=== PATIENT | female | born 1950 | race Caucasian/White ===

== ENCOUNTER 2016-07-06 10:15 | Day surgery (SDC) | payer OTHER ==
[2016-06-07 14:43] VITALS: BMI 37.3
[2016-07-06] VITALS (15 sets, daily range): BP systolic 85–147; BP diastolic 31–69; PULSE 62–97; RESP 14–25; Ht 160 cm; Wt 95.4 kg
[~2016-07-06] VITALS: Ht 160 cm; Wt 95.4 kg
[~2016-07-06 10:15] MED LIST: CEFAZOLIN 2 GM/50 ML (PMX) 50 ML IVPB ONE; CEFAZOLIN 2 GM/50 ML (PMX) 50 ML IVPB SCH; D5-NS + KCL 20 MEQ 1,000 ML IV ONE; D5-NS + KCL 20 MEQ 1,000 ML IV SCH; OMEP20CA16 PO; VITAMINS DAILY; ZOC10 PO; metroNIDAZOLE 500 MG/NS (PMX) 100 ML IVPB ONE; metroNIDAZOLE 500 MG/NS (PMX) 100 ML IVPB SCH
--- NOTE | 2016-07-06 13:20 | HPN ---
Date/Time of Note Date/Time of Note DATE: 07/06/16 TIME: 13:20 Interval H&P Admission Note Pt. seen H&P reviewed: No system changes GERMAN WHEELER MD Jul 06, 2016 13:20
[2016-07-06] MEDS ORDERED: CEFAZOLIN 1 GM INJ ONE (13:58)
[2016-07-06] MEDS ORDERED: PROPOFOL 20 ML ONE (13:58)
[2016-07-06] MEDS ORDERED: FENTAnyl 50 MCG/ML VIAL ONE (13:58)
[2016-07-06] MEDS ORDERED: MIDAZOLAM 1 MG/ML 2 ML INJ ONE (13:58)
[2016-07-06] MEDS ORDERED: PHENYLephrine (100 MCG/ML) 5ML SYG ONE (14:16)
[2016-07-06] MEDS ORDERED: morphine (1 MG/ML) 10ML SYRINGE IV PRN ×3 (14:30)
[2016-07-06] MEDS ORDERED: hydrALAzine 20 MG INJ IV PRN (14:30)
[2016-07-06] MEDS ORDERED: MEPERIDINE 25 MG INJ IV PRN (14:30)
[2016-07-06] MEDS ORDERED: HYDROmorphONE (0.2 MG/ML) 10ML SYG IV PRN ×3 (14:30)
[2016-07-06] MEDS ORDERED: LABETALOL HCL 20MG INJ IV PRN (14:30)
[2016-07-06] MEDS ORDERED: EPHEDrine SULFATE 50 MG/5 ML SYG IV PRN (14:30)
[2016-07-06] MEDS ORDERED: ONDANSETRON 4 MG INJ IV PRN ×2 (14:30→15:30)
[2016-07-06] MEDS ORDERED: METOCLOPRAMIDE 10 MG INJ IV PRN (14:30)
[2016-07-06] MEDS ORDERED: DIPHENHYDRAMINE 50 MG INJ IV PRN (14:30)
[2016-07-06] MEDS ORDERED: KETOROLAC 30 MG INJ ONE (14:32)
[2016-07-06] MEDS ORDERED: DEXAMETHASONE 4 MG/ML 1 ML INJ ONE (14:32)
[2016-07-06] MEDS ORDERED: ONDANSETRON 4 MG INJ ONE (14:32)
[2016-07-06] MEDS ORDERED: METOCLOPRAMIDE 10 MG INJ ONE (14:32)
[2016-07-06] MEDS ORDERED: LACTATED RINGER'S 1,000 ML IV SCH (15:03)
[2016-07-06] MEDS ORDERED: KETOROLAC 30 MG INJ IV PRN (15:30)
--- NOTE | 2016-07-07 20:50 | OPR ---
Date/Time of Note Date/Time of Note DATE: 07/07/16 TIME: 20:49 Operative Report Free Text/Dictation OPERATIVE REPORT [facility] Name: [facility] Date: 07/06/16 Preoperative Diagnosis: VAIN -III Postoperative Diagnosis: Same Procedures: Laser vaporization Surgeon: Dr. Perez Weatherization Technician: Dr. 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 Findings and Procedure: After being prepped and draped in the usual manner ascetic acid was placed and the vagina observed under magnification. The areas of any white epithelium, punctuation and or mosaciasm as noted on the apex were lasered to an appropriate depth at 10 guevara continuous power. The patient tolerated the procedure well and left the OR in good condition. MD LIAM Grijalva SCOTT M MD Jul 07, 2016 20:50
--- NOTE | 2016-07-08 09:30 | RADRPT ---
Vent Rate: 66 bpm RR Interval: 0 msec MI Interval: 146 msec QRS Duration: 102 msec QT Interval: 426 msec QTC Interval: 446 msec P-R-T [place]: 54 - 50 - 50 degrees Normal sinus rhythm Incomplete right bundle branch block Borderline ECG Electronically Signed By: Jeovanny Ann [id number]
== END 2016-07-06 17:46 | disposition home or self-care (01) ==
LOC: SDS 10:15
DX: D07.2 Carcinoma in situ of vagina (principal); E78.5 Hyperlipidemia, unspecified; E66.9 Obesity, unspecified; Z68.37 Body mass index [BMI] 37.0-37.9, adult
CPT/HCPCS: 57061; 86850; 86900; 86901; 86920; 93005; J0690; J1100; J1885; J2250; J2370; J2405; J2765; J3010; J3480

== ENCOUNTER 2017-10-12 07:10 | Day surgery (SDC) | END 2017-10-13 11:43 | disposition home or self-care (01) ==